=== PATIENT | male | born 1955 | race Caucasian/White ===

== ENCOUNTER 2019-01-27 21:19 | Emergency (ER) | payer OTHER ==
[2019-01-27] MEDS ORDERED: Ketorolac Tromethamine 60 MG/2 ML VIAL ONE (23:30)
--- NOTE | 2019-01-28 00:06 | ULT ---
Scrotal ultrasound: 01/27/2019 COMPARISON: None HISTORY: Left-sided pain TECHNIQUE: Multiplanar grayscale sonographic imaging of the scrotal contents with Doppler interrogati on of the testicles including color flow and spectral analysis FINDINGS: The left testicle measures 3.2 x 4.5 x 2.3 cm. The left epididymal head measures 1.2 x 0.9 cm and contains a 3 mm cyst. The right testicle measures 3.9 x 4.7 x 1.6 cm. The right testicle appears mildly heterogeneous and e dematous. This could signify a mild degree of inflammatory change or could be technical in nature. No testicular mass noted on either side. Both testicles demonstrate normal blood flow. There is a sma ll left hydrocele and small left varicocele. Right epididymal head measures 1.0 x 0.6 cm and demonstrates no mass lesion. IMPRESSION: Blood flow noted within both testicles. No intratesticular mass. Mild heterogeneity of th e right testicular echogenicity as detailed above.
[2019-01-28 00:18] LABS: Bacteria/HPF None Seen HPF (None Seen); Bilirubin Negative (Negative); Blood, Urine Negative (Negative); Clarity Clear (Clear); Glucose, Urine (Dipstick) Normal (Negative); Leukocyte Negative Leu/uL (Negative); Nitrite Negative (Negative); Protein, Urine (Dipstick) 100 mg/dL (Neg-Trace); RBC/HPF 0-3 HPF (0-3); Squamous Epithelial None Seen HPF (0-3); WBC/HPF 0-3 HPF (0-3)
== END 2019-01-28 00:39 | disposition home or self-care (01) ==
LOC: ERS 21:19
DX: M54.32 Sciatica, left side (principal); M54.31 Sciatica, right side; N50.812 Left testicular pain
CPT/HCPCS: 76870; 81003; 81015; 93976; 96372; J1885

== ENCOUNTER 2019-01-28 13:11 | Outpatient (CLI) | payer OTHER ==
--- NOTE | 2019-01-28 14:29 | ULT ---
EXAM: Right lower extremity venous Doppler US HISTORY: Right lower extremity edema and pain FINDINGS: Grayscale, color-flow, Doppler evaluation, spectral analysis of the right lower extremity venous stru ctures is performed with 2-D imaging. The right common femoral, superficial femoral, popliteal, posterior tibial, proximal greater saphenous and profunda femoral veins are imaged. There is normal luminal compressibility, flow, and augmentation the visualized deep venous structures of the right lower extremity. IMPRESSION: No evidence of a deep vein thrombosis in the right lower extremity.
== END 2019-01-28 13:12 | disposition home or self-care (01) ==
LOC: ULT 13:11
PROVIDERS: ATTEND Specialist
DX: I89.0 Lymphedema, not elsewhere classified (principal)

== ENCOUNTER 2019-02-04 16:04 | Outpatient (CLI) | payer OTHER ==
--- NOTE | 2019-02-04 16:23 | RAD ---
Lumbar spine 2 views weightbearing. HISTORY: Back pain. FINDINGS: There are 5 lumbar type vertebrae. Pedicles are intact. Vertebral body heights and AP align ment are maintained. Mild rightward convex rotatory scoliotic curvature on the frontal view. Bulky osteophytosis of the lower facets and vertebral bodies and the partially visualized lower thoracic ve rtebral bodies. No aggressive osseous erosions. Degenerative changes of the sacroiliac joints and hips partially visualized. IMPRESSION: Prominent osseous degenerative changes lumbar spine. No acute osseous abnormalities are d emonstrated.
== END 2019-02-04 16:05 | disposition home or self-care (01) ==
LOC: BICRAD 16:04
PROVIDERS: ATTEND Specialist
DX: M54.5 Low back pain (principal); M47.816 Spondylosis without myelopathy or radiculopathy, lumbar region
CPT/HCPCS: 72100

== ENCOUNTER 2019-02-07 12:22 | Outpatient (CLI) | payer OTHER ==
--- NOTE | 2019-02-07 13:05 | ULT ---
US Abd Pel DupArt Harjinder Flow Cmp History: Pain Comparison: None. Findings: Real-time grayscale color and spectral analysis of the iliac veins was performed. The external iliac veins are patent. Adequate flow and augmentation. Impression: Patent external iliac veins.
== END 2019-02-07 12:23 | disposition home or self-care (01) ==
LOC: ULT 12:22
PROVIDERS: ATTEND Specialist
DX: I89.0 Lymphedema, not elsewhere classified (principal)
CPT/HCPCS: 93975

== ENCOUNTER 2024-10-17 00:57 | Emergency (ER) | payer MEDICARE, OTHER ==
[2024-10-17] MEDS ORDERED: Lidocaine 1% PF 5 ML VIAL ONE (02:31)
[2024-10-17] MEDS ORDERED: Boostrix 0.5 ML (Tdap) VIAL (>/=7 yrs of age) ONE (02:32)
== END 2024-10-17 03:33 | disposition home or self-care (01) ==
LOC: ERS 00:57
DX: T63.301A Toxic effect of unspecified spider venom, accidental (unintentional), initial encounter (principal); L03.113 Cellulitis of right upper limb
CPT/HCPCS: 90471; 90715